=== PATIENT | female | born 1985 | race American Indian/Alaskan Native ===

== ENCOUNTER 2019-06-12 18:52 | Emergency (ER) | payer BC ==
--- NOTE | 2019-06-12 21:27 | Event Note ---
ED Screening Note ED Screening Note: states she began having a headache three days ago states occasionally her vision is blurry states she has associated lightheaded states she is having tingling on the right side no n/v/d no fever states she took tylenol but did not help PMHx none no allergies to meds LNMP: a week ago This initial assessment/diagnostic orders/clinical plan/treatment(s) is/are subject to change based on patients health status, clinical progression and re- assessment by fellow clinical providers in the ED. Further treatment and workup at subsequent clinical providers discretion. Patient/guardian urged not to elope from the ED as their condition may be serious if not clinically assessed and managed. Initial orders include: CT head, UA, urine preg
[2019-06-12 21:30] VITALS: BP 157/84
--- NOTE | 2019-06-12 22:03 | Cat Scan Report ---
CT head/brain wo con INDICATION / CLINICAL INFORMATION: 34 years Female; headache, blurred vision, tingling right side. TECHNIQUE: Routine CT head without contrast. All CT scans at this location are performed using CT dos e reduction for ALARA by means of automated exposure control. COMPARISON: None. FINDINGS: BRAIN / INTRACRANIAL CONTENTS: The motion and beam hardening degrade the image quality. However, the brain appears to demonstrate appropriate attenuation. The ventricular system is within normal limits in size and configuration. There is no clear CT evidence of acute intracranial hemorrhage or signific ant mass effect. ORBITS: No significant abnormality of visualized orbits. SINUSES / MASTOIDS: No significant abnormality the visualized paranasal sinuses or mastoid air cells. CRANIOCERVICAL JUNCTION: No significant abnormality. ADDITIONAL FINDINGS: None. IMPRESSION: 1. There is no clear CT evidence of acute intracranial process. Signer Name: Gonzalez Velez MD Signed: 06/12/2019 9:58 PM Workstation Name: [id number]
[2019-06-12] MEDS ORDERED: METOCLOPRAMIDE 10 MG/2 ML INJ IV ONE (22:13)
[2019-06-12] MEDS ORDERED: KETOROLAC 30 MG/1 ML INJ IV ONE (22:13)
[2019-06-12] MEDS ORDERED: diphenhydrAMINE 50 MG/ML VIAL IV ONE (22:13)
--- NOTE | 2019-06-12 22:27 | Emergency Department Report ---
ED Headache HPI - General Chief Complaint: Headache Stated Complaint: WEAK,NUMB RT FOOT/HEADACHE/DIZZY Time Seen by Provider: 06/12/19 21:26 - History of Present Illness Initial Comments: 34-year-old -[place] female states she began having a headache three days ago states occasionally her vision is blurry states she has associated lightheaded states she is having tingling on the right side no n/v/d no fever states she took tylenol but did not help PMHx none no allergies to meds LNMP: a week ago Timing/Duration: other (3 days) Quality: moderate Head Injury Location: temporal Recent Head Trauma: no recent headache/trauma Modifying Factors: improves with: exposure to light Associated Symptoms: vision changes Allergies/Adverse Reactions: Allergies No Known Allergies Allergy (Verified 06/12/19 19:47) Home Medications: Ambulatory Orders Butalb/Acetamin/Caff 50-325-40 [Fioricet 50-325-40] 1 tab PO Q6HR PRN #12 tab 06/12/19 ED Review of Systems ROS: Stated complaint: WEAK,NUMB RT FOOT/HEADACHE/DIZZY Other details as noted in HPI Comment: All other systems reviewed and negative ED Past Medical Hx - Past Medical History Previous Medical History?: No - Surgical History Past Surgical History?: Yes Hx Cholecystectomy: Yes - Social History Smoking Status: Current Every Day Smoker - Medications Home Medications: Home Medications Medication Instructions Recorded Confirmed Last Taken Type Butalb/Acetamin/Caff 50-325-40 1 tab PO Q6HR PRN #12 tab 06/12/19 Unknown Rx [Fioricet 50-325-40] ED Physical Exam - General Limitations: No Limitations General appearance: alert, in no apparent distress - Head Head exam: Present: atraumatic, normocephalic - Eye Eye exam: Present: PERRL, EOMI - ENT ENT exam: Present: mucous membranes moist - Neck Neck exam: Present: normal inspection, full ROM - Cardiovascular Cardiovascular Exam: Present: regular rate, normal rhythm. Absent: systolic murmur, diastolic murmur, rubs, gallop - GI/Abdominal GI/Abdominal exam: Present: soft, normal bowel sounds - Neurological Exam Neurological exam: Present: alert, oriented X3, normal gait - Expanded Neurological Exam Expanded Cranial nerves: EOM's Intact: Normal, Gag Reflex: Normal, Tongue Deviation: Normal, Nystagmus: Normal, Facial Sensation: Normal, Facial Palsy with Forehead Movement: Normal, Facial Palsy without Forehead Movement: Normal Cerebellar function: Finger to Nose: Normal, Heel to Ward: Normal, Romberg: Normal Upper motor neuron: Semaj Neglect: Normal, Pronator Drift: Normal, Sensory Extinction: Normal Sensory exam: Upper Extremity Light Touch: Normal, Upper Extremity Pin Prick: Normal, Upper Extremity Temperature: Normal, UE 2 Point Discrimination: Normal, Lower Extremity Light Touch: Normal, Lower Extremity Pin Prick: Normal, Lower Extremity Temperature: Normal, LE 2 Point Discrimination: Normal Motor strength exam: RUE: 4, LUE: 4, RLE: 4, LLE: 4 Best Eye Response (Mayer): (4) open spontaneously Best Motor Response (Mayer): (6) obeys commands Best Verbal Response (Mayer): (5) oriented Ritesh Total: 15 - Psychiatric Psychiatric exam: Present: normal affect, normal mood - Skin Skin exam: Present: warm, dry, intact, normal color. Absent: rash ED Course Vital Signs 06/12/19 06/12/19 06/12/19 20:24 21:26 21:30 Temperature 98.7 F 98.7 F Pulse Rate 73 73 Respiratory 16 18 Rate Blood Pressure 178/99 Blood Pressure 178/99 157/84 [Right] O2 Sat by Pulse 100 100 Oximetry ED Medical Decision Making - Medical Decision Making 34-year-old -[place] female states she began having a headache three days ago states occasionally her vision is blurry states she has associated lightheaded states she is having tingling on the right side no n/v/d no fever states she took tylenol but did not help PMHx none no allergies to meds LNMP: a week ago CT negative for any acute abnormalities. Patient will be given a migraine cocktail consisting of Toradol 15 IV, Benadryl 25 IV and Reglan 10 mg IV. We will also check a blood sugar [id number] since patient was complaining of dry mouth with a family history of diabetes. Critical care attestation.: If time is entered above; I have spent that time in minutes in the direct care of this critically ill patient, excluding procedure time. ED Disposition Clinical Impression: Head ache Disposition: DC-01 TO HOME OR SELFCARE Is pt being admited?: No Does the pt Need Aspirin: No Condition: Stable Instructions: Acute Headache (ED) Additional Instructions: Take pain medication for headache as needed. Increase your fluid intake advance her diet as tolerated. Prescriptions: Butalb/Acetamin/Caff 50-325-40 [Fioricet 50-325-40] 1 tab PO Q6HR PRN #12 tab PRN Reason: Headache Referrals: BENEDICTO ROBBINS MD [Primary Care Provider] - 3-5 Days Forms: Work/School Release Form(ED)
[2019-06-12 22:53] LABS: Bacteria,Urine 1+ /HPF (Negative); Bilirubin,Urine NEG (Negative); Blood,Urine NEG (Negative); Color,Urine Yellow (Yellow); Mucus,Urine FEW /HPF; Protein,Urine <15 mg/dL mg/dL (Negative); Urobilinogen,Urine < 2.0 mg/dL (<2.0)
[2019-06-12 22:58] LABS: HCG Qualitative,Urine Negative (Negative)
== END 2019-06-13 01:35 | disposition home or self-care (01) ==
LOC: ED 18:52
DX: R51 Headache (principal); R42 Dizziness and giddiness; R53.1 Weakness; R20.0 Anesthesia of skin; F17.200 Nicotine dependence, unspecified, uncomplicated; Z90.49 Acquired absence of other specified parts of digestive tract; Z79.899 Other long term (current) drug therapy
CPT/HCPCS: 70450; 81001; 81025; 96374; 96375; 99284; J1200; J1885; J2765